=== PATIENT | male | born 1955 | race Caucasian/White ===

== ENCOUNTER 2024-04-19 14:22 | Observation (INO) | payer MEDICARE, SELFPAY ==
--- NOTE | 2024-04-19 14:29 | ERPHSYRPT ---
- History of Present Illness Time Seen by Provider: 04/19/24 14:29 Source: patient, family Exam Limitations: no limitations Physician History: This is a 69-year-old white male patient of primary care physician, Dr. Jax Fischer, and flatwork washer, Dr. Rhoades, and presents with palpitations and left anterior chest discomfort with radiation down his left arm. Patient has a history of COPD, hypertension, hyperlipidemia, anxiety and gastroesophageal reflux disease. Patient has not had a CABG or cardiac stent in place. He does have relatively new diagnosis of atrial fibrillation and is on Xarelto. Patient was visiting and staying at a local [facility], and has been consuming alcoholic beverages, when he noticed left anterior chest discomfort associated palpitations approximately 2 hours prior to arrival. The chest discomfort has resolved but there is still some achiness in his left upper extremity. Patient denies shortness of breath. He does not have a cough. He has no abdominal pain. Timing/Duration: today Quality: other Location: other (Left anterior discomfort left anterior chest) Chest Pain Radiation: arm (Left arm) Severity of Pain-Max: mild Severity of Pain-Current: none Nitro Today/Relief: no nitro taken today Aspirin Treatment Today: 81 mg x 4, provided by ED Associated Symptoms: chest pain, No shortness of breath Prior Chest Pain/Cardiac Workup: cardiac cath, echocardiography Allergies/Adverse Reactions: azithromycin [From Zithromax] Allergy (Verified 04/19/24 14:28) Sulfa (Sulfonamide Antibiotics) Allergy (Verified 04/19/24 14:28) fluticasone furoate [From Breo Ellipta] Adverse Reaction (Verified 04/19/24 14:28) vilanterol [From Breo Ellipta] Adverse Reaction (Verified 04/19/24 14:28) Home Medications: ALPRAZolam [Alprazolam] 0.5 mg PO TID 04/19/24 [History] Albuterol 2.5 mg/3 ml Neb [Proventil 2.5 mg/3 ml Neb] 1 ea Q6HPRN PRN 04/19/24 [History] Albuterol Sulfate [Proair Digihaler] 90 mcg IH Q6H PRN PRN 04/19/24 [History] Budesonide/Glycopyr/Formoterol [Breztri Aerosphere Inhaler] 5.9 gm IH BID [History] Celecoxib 100 mg [celeBREX 100 MG] 100 mg PO DAILY 04/19/24 [History] Cholecalciferol (Vitamin D3) [D3 Dots] 25 mcg PO DAILY 04/19/24 [History] Ezetimibe 10 mg [Zetia 10 MG] 10 mg PO DAILY 04/19/24 [History] Levocetirizine Dihydrochloride 5 mg PO DAILY 04/19/24 [History] Lisinopril 5 mg [Zestril 5 MG] 5 mg PO DAILY 04/19/24 [History] Metoprolol Tartrate 25 mg [Lopressor 25MG Tab] 25 mg PO BID 04/19/24 [History] Omeprazole 20 mg PO DAILY 04/19/24 [History] Rivaroxaban [Xarelto] 20 mg PO DAILY 04/19/24 [History] Simvastatin 10 mg [Zocor 10MG] 10 mg PO DAILY 04/19/24 [History] Tamsulosin HCl 0.4 mg [Flomax 0.4 MG] 1 ea DAILY 04/19/24 [History] cilostazoL [Cilostazol] 50 mg PO BID 04/19/24 [History] Travel Risk - International Travel Have you traveled outside of the country in past 3 weeks: No - Emerging Infectious Disease Are you exhibiting symptoms associated with any current EIDs: No - Review of Systems Constitutional: No Symptoms Eyes: No Symptoms Ears, Nose, & Throat: No Symptoms Respiratory: No Symptoms Cardiac: Chest Pain Abdominal/Gastrointestinal: No Symptoms Genitourinary Symptoms: No Symptoms Musculoskeletal: No Symptoms Skin: No Symptoms Neurological: No Symptoms Psychological: No Symptoms Endocrine: No Symptoms Hematologic/Lymphatic: No Symptoms Immunological/Allergic: No Symptoms All Other Systems: Reviewed and Negative - Past Medical History Pertinent Past Medical History: Yes - Past Surgical History Past Surgical History: Yes - Nursing Vital Signs Nursing Vital Signs: Initial Vital Signs Temperature 97.2 F 04/19/24 14:32 Pulse Rate 66 04/19/24 14:32 Respiratory Rate 18 04/19/24 14:32 Blood Pressure 144/84 04/19/24 14:32 O2 Sat by Pulse Oximetry 99 04/19/24 14:32 Pain Scale Pain Intensity 4 - Physical Exam General Appearance: no apparent distress, alert, anxiety, thin Eye Exam: PERRL/EOMI, eyes nml inspection Ears, Nose, Throat Exam: normal ENT inspection, moist mucous membranes Neck Exam: normal inspection, non-tender, supple, full range of motion Respiratory Exam: normal breath sounds, lungs clear, airway intact, No chest tenderness (No chest tenderness at this time), No respiratory distress Cardiovascular Exam: regular rate/rhythm, normal heart sounds, normal peripheral pulses Gastrointestinal/Abdomen Exam: soft, normal bowel sounds, No tenderness Rectal Exam: not done Back Exam: normal inspection, normal range of motion, No CVA tenderness, No rodrick tebral tenderness Extremity Exam: normal range of motion, pelvis stable, pedal edema (Bilateral feet and ankle swelling) Neurologic Exam: alert, oriented x 3, cooperative, loader unloader II-XII nml as tested, sensation nml Skin Exam: normal color, warm, dry Lymphatic Exam: No adenopathy SpO2 Interpretation: normal O2 Delivery: Room Air - Course EKG Interpreted by Me: RATE (70), Sinus Rhythm, NORMAL AXIS, NORMAL INTERVALS, NORMAL QRS, NORMAL ST-T, Other (No acute ischemic changes on today's twelve-lead EKG. No significant change when compared to EKG dated 06/23/2022. The QTc today is 426) Ordered Tests: Active Orders 24 hr Category Date Time Status EKG-ER Only STAT Care 04/19/24 14:44 Active IV Insertion STAT Care 04/19/24 14:44 Active Pulse Oximetry (ED) STAT Care 04/19/24 14:44 Active CHEST 1 VIEW (PORTABLE) Stat Exams 04/19/24 14:44 Completed CBC W DIFF Stat Lab 04/19/24 14:30 Completed CMP Stat Lab 04/19/24 14:30 Completed ETHYL ALCOHOL Stat Lab 04/19/24 14:30 Completed MAGNESIUM Stat Lab 04/19/24 14:30 Completed NT PRO BNPII Stat Lab 04/19/24 14:30 Completed PROTIME WITH INR Stat Lab 04/19/24 14:30 Completed TROPONIN Q4H Lab 04/19/24 14:30 Completed TROPONIN Q4H Lab 04/19/24 17:25 Completed TROPONIN Q4H Lab 04/19/24 22:45 Ordered Medication Summary Discontinued Medications Generic Name Dose Route Start Last Admin Trade Name Freq PRN Reason Stop Dose Admin Aspirin 324 mg 04/19/24 14:44 04/19/24 14:53 Aspirin 81 Mg Tab.Chew PO 04/19/24 14:45 324 mg STAT ONE Administration Aspirin Confirm 04/19/24 14:52 Aspirin 81 Mg Tab.Chew Administered 04/19/24 14:53 Dose 324 mg .ROUTE .STK-MED ONE Lab/Rad Data: Laboratory Result Diagrams 04/19/24 14:30 04/19/24 14:30 Laboratory Results 04/19/24 04/19/24 04/19/24 Range/Units 17:25 14:30 14:30 WBC (4.23-9.07) x10^3/uL RBC (4.63-6.08) x10^6/uL Hgb (13.7-17.5) g/dL Hct (40.1-51.0) % MCV (79.0-92.2) fL MCH (25.7-32.2) pg MCHC (32.3-36.5) g/dL RDW (11.6-14.4) % Plt Count (163-337) x10^3/uL MPV (9.4-12.4) fL Gran % (34.0-67.9) % Immature Gran % (Auto) (0.001-0.429) % Nucleat RBC Rel Count (0.00-0.2) % Eos # (Auto) (0.04-0.54) x10^3/uL Immature Gran # (Auto) (0.001-0.031) x10^3u/L Absolute Lymphs (auto) (1.32-3.57) x10^3/uL Absolute Monos (auto) (0.30-0.82) x10^3/uL Absolute Nucleated RBC (0.00-0.012) x10^3u/L Lymphocytes % (21.8-53.1) % Monocytes % (5.3-12.2) % Eosinophils % (0.8-7.0) % Basophils % (0.2-1.2) % Absolute Granulocytes (1.78-5.38) x10^3/uL Basophils # (0.01-0.08) x10^3/uL PT 10.9 (9.4-12.5) SECONDS INR 1.00 (0.8-3.0) Sodium (135-145) mmol/L Potassium (3.5-5.1) mmol/L Chloride (98-107) mmol/L Carbon Dioxide (22-30) mmol/L Anion Gap (5-15) MEQ/L BUN (9-20) mg/dL Creatinine (0.66-1.25) mg/dL Estimated GFR ML/MIN Glucose (74-106) mg/dL Calcium (8.4-10.2) mg/dL Magnesium (1.6-2.3) mg/dL Total Bilirubin (0.2-1.3) mg/dL AST (17-59) U/L ALT (0-50) U/L Alkaline Phosphatase (38-126) U/L Troponin I < 0.012 < 0.012 (0.000-0.033) ng/mL NT-Pro-B Natriuret Pep 78.3 (<300) pg/mL Serum Total Protein (6.3-8.2) g/dL Albumin (3.5-5.0) g/dL Ethyl Alcohol (0-10) mg/dL 04/19/24 04/19/24 Range/Units 14:30 14:30 WBC 5.4 (4.23-9.07) x10^3/uL RBC 3.89 L (4.63-6.08) x10^6/uL Hgb 11.4 L (13.7-17.5) g/dL Hct 34.3 L (40.1-51.0) % MCV 88.2 (79.0-92.2) fL MCH 29.3 (25.7-32.2) pg MCHC 33.2 (32.3-36.5) g/dL RDW 13.2 (11.6-14.4) % Plt Count 117 L (163-337) x10^3/uL MPV 11.1 (9.4-12.4) fL Gran % 59.7 (34.0-67.9) % Immature Gran % (Auto) 0.4 (0.001-0.429) % Nucleat RBC Rel Count 0.0 (0.00-0.2) % Eos # (Auto) 0.15 (0.04-0.54) x10^3/uL Immature Gran # (Auto) 0.02 (0.001-0.031) x10^3u/L Absolute Lymphs (auto) 1.23 L (1.32-3.57) x10^3/uL Absolute Monos (auto) 0.73 (0.30-0.82) x10^3/uL Absolute Nucleated RBC 0.00 (0.00-0.012) x10^3u/L Lymphocytes % 22.6 (21.8-53.1) % Monocytes % 13.4 H (5.3-12.2) % Eosinophils % 2.8 (0.8-7.0) % Basophils % 1.1 (0.2-1.2) % Absolute Granulocytes 3.25 (1.78-5.38) x10^3/uL Basophils # 0.06 (0.01-0.08) x10^3/uL PT (9.4-12.5) SECONDS INR (0.8-3.0) Sodium 137 (135-145) mmol/L Potassium 4.4 (3.5-5.1) mmol/L Chloride 103 (98-107) mmol/L Carbon Dioxide 27 (22-30) mmol/L Anion Gap 11.1 (5-15) MEQ/L BUN 18 (9-20) mg/dL Creatinine 1.29 H (0.66-1.25) mg/dL Estimated GFR 60.8 ML/MIN Glucose 104 (74-106) mg/dL Calcium 9.2 (8.4-10.2) mg/dL Magnesium 1.7 (1.6-2.3) mg/dL Total Bilirubin 0.70 (0.2-1.3) mg/dL AST 29 (17-59) U/L ALT 20 (0-50) U/L Alkaline Phosphatase 54 (38-126) U/L Troponin I (0.000-0.033) ng/mL NT-Pro-B Natriuret Pep (<300) pg/mL Serum Total Protein 6.7 (6.3-8.2) g/dL Albumin 3.8 (3.5-5.0) g/dL Ethyl Alcohol < 10 (0-10) mg/dL - Progress Progress: improved, re-examined Air Movement: good Progress Note: 04/19/24 16:02 My medical decision making and the assignment of moderate complexity to this patient's medical issue today is based on review of the patient's past medical history, review of the patient's medication list, review of patient drug allergy list, history present illness and physical exam findings. The workup in this patient includes placement of intravenous line, CBC, CMP, BNP, chest x-ray, twelve-lead EKG, 324 mg of aspirin chewable, magnesium. 04/19/24 16:04 The differential diagnosis in this patient includes but is not limited to myocardial infarction, arrhythmia, electrolyte abnormalities, pneumonia 04/19/24 16:16 I spoke with telemetry flatwork washer Dr. Donnelly. I reviewed the patient history, presenting complaint and workup findings/results. He wanted to make sure that we repeat a 3-hour twelve-lead EKG and troponin level. If the troponin level remains normal, it is appropriate to place him in observation for further evaluation management. We will have telehospitalist consulted and in turn will have the telemetry flatwork washer consulted while this patient is in- house. 04/19/24 16:52 The chest x-ray was interpreted by the radiologist and I reviewed the impression. The impression states COPD changes. No new or acute findings. 04/19/24 18:04 The 3-hour troponin is normal. I interpreted the patient's 3-hour twelve-lead EKG. The heart rate is 63 bpm it is a normal sinus rhythm pattern. There is normal axis deviation and normal QRS as well as normal intervals. There is no evidence of acute ischemia. 04/19/24 18:33 I spoke with our telehospitalist Dr. Davis. I reviewed the patient history, patient presenting complaint, physical findings on examination and the results of the initial workup as well as a 3-hour troponin and twelve-lead EKG. I also spoke reviewed with him my conversation with telemetry flatwork washer Dr. Donnelly. Dr. Davis accepts the patient to be placed in observation on telemetry. Blood Culture(s) Obtained: No Antibiotics given: No Counseled pt/family regarding: lab results, diagnosis Medical Desision Making - Independent Historian Additional History obtained from: Spouse - Diagnostic Testing Diagnostic test were ordered, analyzed, and reviewed by me: Yes Radiological Interpretation: Reviewed by me, Teleradiologist Report - Risk of complications The pt has a high risk of morbidity or mortality based on: Decision regarding hospitilization or escalation of hosp level of care - Departure Departure Disposition: Observation Clinical Impression: Nonspecific chest pain, Left upper extremity numbness Condition: Stable Critical Care Time: No Referrals: JOVITA FISCHER [Primary Care Provider] - Follow up/PCP as directed
[2024-04-19 14:50] LABS: Absolute Neutrophil Ct (ANC) 3.25 x10^3/uL (1.78-5.38); BASOPHIL % 1.1 % (0.2-1.2); Basophil (Absolute #) 0.06 x10^3/uL (0.01-0.08); Eosinophil % 2.8 % (0.8-7.0); Eosinophil (Absolute #) 0.15 x10^3/uL (0.04-0.54); Hematocrit 34.3 % (40.1-51.0); Hemoglobin 11.4 g/dL (13.7-17.5); IMMATURE GRAN # 0.02 x10^3u/L (0.001-0.031); IMMATURE GRAN % 0.4 % (0.001-0.429); Lymphocyte (Absolute #) 1.23 x10^3/uL (1.32-3.57); Lymphocytes % 22.6 % (21.8-53.1); Mean Cell Volume 88.2 fL (79.0-92.2); Mean Corpuscular Hemoglobin 29.3 pg (25.7-32.2); Mean Corpuscular Hgb Concent. 33.2 g/dL (32.3-36.5); Mean Platelet Volume 11.1 fL (9.4-12.4); Monocyte (Absolute #) 0.73 x10^3/uL (0.30-0.82); Monocytes % 13.4 % (5.3-12.2); Neutrophil % 59.7 % (34.0-67.9); Platelet Count 117 x10^3/uL (163-337); Red Blood Count 3.89 x10^6/uL (4.63-6.08); Red Cell Distribution Width 13.2 % (11.6-14.4); White Blood Count 5.4 x10^3/uL (4.23-9.07)
[2024-04-19] MEDS ORDERED: BABY ASPIRIN 81 MG CHEW ONE (14:52)
[2024-04-19] MEDS: BABY ASPIRIN 81 MG CHEW PO ONE (14:53)
[2024-04-19 14:58] LABS: ALBUMIN 3.8 g/dL (3.5-5.0); ALKALINE PHOSPHATASE 54 U/L (38-126); ANION GAP 11.1 MEQ/L (5-15); BLOOD UREA NITROGEN 18 mg/dL (9-20); CHLORIDE 103 mmol/L (98-107); Calcium 9.2 mg/dL (8.4-10.2); Carbon Dioxide 27 mmol/L (22-30); Creatinine 1 1.29 mg/dL (0.66-1.25); EST GLOMERULAR FILTRATION RATE 60.8 ML/MIN; ETHYL ALCOHOL < 10 mg/dL (0-10); Glucose 104 mg/dL (74-106); MAGNESIUM 1.7 mg/dL (1.6-2.3); PROTIME 10.9 SECONDS (9.4-12.5); Potassium 4.4 mmol/L (3.5-5.1); SGOT/AST 29 U/L (17-59); SGPT/ALT 20 U/L (0-50); SODIUM 137 mmol/L (135-145); Total Protein 6.7 g/dL (6.3-8.2)
--- NOTE | 2024-04-19 15:05 | XRAY ---
Indication: Chest pain. Comparison: August 25, 2023 Portable chest unchanged again demonstrate COPD and left lung suture material. Remaining heart and lungs unremarkable. Bony thorax intact again with osteopenia, mild degenerative changes, and old right 7 rib fracture. No new/acute findings.
[2024-04-19 15:10] LABS: NT PRO BNPII 78.3 pg/mL (<300); TROPONIN < 0.012 ng/mL (0.000-0.033)
[2024-04-19] MEDS ORDERED: Zofran 4 MG/2 ML VIAL IV PRN (19:41)
[2024-04-19] MEDS ORDERED: TYLENOL 325 MG PO PRN (19:41)
[2024-04-19] MEDS ORDERED: PROVENTIL 2.5 MG/3 ML NEB IH PRN (21:19)
--- NOTE | 2024-04-19 21:27 | PCM.HP ---
History of Present Illness - Chief Complaint Chief Complaint: Chest pressure and "fluttering" Date: 04/19/24 History of Present Illness: 69-year-old man with history of COPD, paroxysmal A-fib, mild CKD stage III, and hypertension, who presents with chest pressure. Patient has paroxysmal atrial fibrillation, usually asymptomatic, but has had a few episodes of feeling fluttering in his chest in the past. Today, at rest, he had the onset around 2 PM of falling again, this time associated with chest pressure over his mid sternum to left side, radiating to his left arm, lasting around 2 hours. Denies associated dyspnea, nausea, or diaphoresis. Pain occurred at rest, not relieved by rest, only after getting aspirin in the ED. No similar chest pressure in the past. No recent sick contacts or other illnesses, no recent change in medications or diet. He was camping recently with a campfire, and thinks he might have a little bit of wheezing, but none currently. Currently he is chest pain-free. Of note, he is to see his mail examiner Dr. Rhoades at the end of this month for follow-up with A-fib. PCP is Dr. Fischer. - Review of Systems Constitutional: No Fever, No Lethargy, No Malaise, No Night Sweats Eyes: No Vision Changes, No Double Vision Ears, Nose, & Throat: No Sinus Drainage, No Mouth Swelling, No Throat Pain Respiratory: Wheezing, No Cough, No Short Of Breath Cardiac: Chest Pain, Palpitations, No Edema, No Syncope, No PND Abdominal/Gastrointestinal: No Abdominal Pain, No Nausea, No Diarrhea, No Constipation Genitourinary Symptoms: No Dysuria, No Frequency All Other Systems: Reviewed and Negative Medications & Allergies Home Medications: Home Medication List ALPRAZolam [Alprazolam] 0.5 mg PO TID 04/19/24 [History Confirmed 04/19/24] Albuterol 2.5 mg/3 ml Neb [Proventil 2.5 mg/3 ml Neb] 1 ea Q6HPRN PRN 04/19/24 [History Confirmed 04/19/24] Albuterol Sulfate [Proair Digihaler] 90 mcg IH Q6H PRN PRN 04/19/24 [History Confirmed 04/19/24] Budesonide/Glycopyr/Formoterol [Breztri Aerosphere Inhaler] 5.9 gm IH BID 04/19/24 [History Confirmed 04/19/24] Celecoxib 100 mg [celeBREX 100 MG] 100 mg PO DAILY 04/19/24 [History Confirmed 04/19/24] Cholecalciferol (Vitamin D3) [D3 Dots] 25 mcg PO HS 04/19/24 [History Confirmed 04/19/24] Ezetimibe 10 mg [Zetia 10 MG] 10 mg PO DAILY 04/19/24 [History Confirmed 04/19/24] Levocetirizine Dihydrochloride 5 mg PO HS 04/19/24 [History Confirmed 04/19/24] Lisinopril 5 mg [Zestril 5 MG] 5 mg PO HS 04/19/24 [History Confirmed 04/19/24] Metoprolol Tartrate 25 mg [Lopressor 25MG Tab] 25 mg PO BID 04/19/24 [History Confirmed 04/19/24] Omeprazole 20 mg PO HS 04/19/24 [History Confirmed 04/19/24] Rivaroxaban [Xarelto] 20 mg PO HS 04/19/24 [History Confirmed 04/19/24] Simvastatin 10 mg [Zocor 10MG] 10 mg PO DAILY 04/19/24 [History Confirmed 04/19/24] Tamsulosin HCl 0.4 mg [Flomax 0.4 MG] 1 mg PO HS 04/19/24 [History Confirmed 04/19/24] cilostazoL [Cilostazol] 50 mg PO BID 04/19/24 [History Confirmed 04/19/24] Allergies/Adverse Reactions: Allergies Allergy/AdvReac Type Severity Reaction Status Date / Time azithromycin [From Zithromax] Allergy Verified 04/19/24 14:28 Sulfa (Sulfonamide Allergy Verified 04/19/24 14:28 Antibiotics) fluticasone furoate AdvReac Verified 04/19/24 14:28 [From Breo Ellipta] vilanterol AdvReac Verified 04/19/24 14:28 [From Breo Ellipta] - Past Medical History Past Medical History: Yes Neurological History: No Pertinent History ENT History: No Pertinent History Cardiac History: Arrhythmia (Paroxysmal atrial fibrillation), High Cholesterol, Hypertension, Other (Mitral valve prolapse without stenosis) Respiratory History: COPD (Not requiring oxygen) Endocrine Medical History: No Pertinent History Musculoskelatal History: No Pertinent History GI Medical History: GERD History: Renal Disease (CKD stage III, baseline creatinine 1.3) Pyscho-Social History: No Pertinent History Male Reproductive Disorders: No Pertinent History - Past Surgical History Past Surgical History: Yes Neuro Surgical History: No Pertinent History Respiratory Surgery: Lobectomy, Other GI Surgical History: No Pertinent History Genitourinary Surgical Hx: No Pertinent History Musculskeletal Surgical Hx: No Pertinent History Male Surgical History: No Pertinent History Other Surgical History: removed nodle in lung, left lobectomy Significant Family History: heart disease (Mother with heart disease in her 50s) - Social History Smoking Status: Former smoker (Quit 15 years ago) Exposure to second hand smoke: No Alcohol: Daily Drug Use: none - Social Determinants of Health Will the patient participate in the screening: Yes Do you worry about a steady place to live?: No Do you have any problems with any of the following?: No known problems In the past 12 months,have you had to go without utilities?: No Have you or anyone in your house had to go without enough: No Transportation Issues: No Has anyone in your support network made you feel unsafe?: No Does the patient want assistance with any of the above?: No - Physical Exam Vital Signs: Vital Signs - 24 hr Temp Pulse Pulse Resp BP BP Pulse Ox 04/19/24 19:55 97.4 F 67 16 165/77 97 04/19/24 19:00 70 13 150/73 97 04/19/24 18:30 68 16 142/83 97 04/19/24 18:00 63 16 150/84 97 04/19/24 17:30 64 15 153/71 04/19/24 17:01 66 17 138/74 99 04/19/24 16:30 65 16 118/68 95 04/19/24 16:00 65 16 125/66 99 04/19/24 15:41 64 16 137/99 04/19/24 15:39 98 04/19/24 15:30 65 19 130/68 99 04/19/24 14:49 70 04/19/24 14:32 97.2 F 66 18 144/84 99 GEN: Lying in bed in no acute distress NEURO: No focal deficits CV: Regular rate and rhythm currently. Slight mitral click. No murmurs. No edema. PULM: Minimal wheezing at bilateral bases. No work of breathing, no accessory muscle movement. On room air. ABD: Soft, non-distended, normoactive bowel sounds PSYCH: Alert, oriented x3 Results - Labs Lab/Micro Results: Lab Results-Last 24 Hours 04/19/24 04/19/24 04/19/24 Range/Units 14:30 14:30 14:30 WBC 5.4 (4.23-9.07) x10^3/uL RBC 3.89 L (4.63-6.08) x10^6/uL Hgb 11.4 L (13.7-17.5) g/dL Hct 34.3 L (40.1-51.0) % MCV 88.2 (79.0-92.2) fL MCH 29.3 (25.7-32.2) pg MCHC 33.2 (32.3-36.5) g/dL RDW 13.2 (11.6-14.4) % Plt Count 117 L (163-337) x10^3/uL MPV 11.1 (9.4-12.4) fL Gran % 59.7 (34.0-67.9) % Immature Gran % (Auto) 0.4 (0.001-0.429) % Nucleat RBC Rel Count 0.0 (0.00-0.2) % Eos # (Auto) 0.15 (0.04-0.54) x10^3/uL Immature Gran # (Auto) 0.02 (0.001-0.031) x10^3u/L Absolute Lymphs (auto) 1.23 L (1.32-3.57) x10^3/uL Absolute Monos (auto) 0.73 (0.30-0.82) x10^3/uL Absolute Nucleated RBC 0.00 (0.00-0.012) x10^3u/L Lymphocytes % 22.6 (21.8-53.1) % Monocytes % 13.4 H (5.3-12.2) % Eosinophils % 2.8 (0.8-7.0) % Basophils % 1.1 (0.2-1.2) % Absolute Granulocytes 3.25 (1.78-5.38) x10^3/uL Basophils # 0.06 (0.01-0.08) x10^3/uL PT 10.9 (9.4-12.5) SECONDS INR 1.00 (0.8-3.0) Sodium 137 (135-145) mmol/L Potassium 4.4 (3.5-5.1) mmol/L Chloride 103 (98-107) mmol/L Carbon Dioxide 27 (22-30) mmol/L Anion Gap 11.1 (5-15) MEQ/L BUN 18 (9-20) mg/dL Creatinine 1.29 H (0.66-1.25) mg/dL Estimated GFR 60.8 ML/MIN Glucose 104 (74-106) mg/dL Calcium 9.2 (8.4-10.2) mg/dL Magnesium 1.7 (1.6-2.3) mg/dL Total Bilirubin 0.70 (0.2-1.3) mg/dL AST 29 (17-59) U/L ALT 20 (0-50) U/L Alkaline Phosphatase 54 (38-126) U/L Troponin I (0.000-0.033) ng/mL NT-Pro-B Natriuret Pep (<300) pg/mL Serum Total Protein 6.7 (6.3-8.2) g/dL Albumin 3.8 (3.5-5.0) g/dL Ethyl Alcohol < 10 (0-10) mg/dL 04/19/24 04/19/24 Range/Units 14:30 17:25 WBC (4.23-9.07) x10^3/uL RBC (4.63-6.08) x10^6/uL Hgb (13.7-17.5) g/dL Hct (40.1-51.0) % MCV (79.0-92.2) fL MCH (25.7-32.2) pg MCHC (32.3-36.5) g/dL RDW (11.6-14.4) % Plt Count (163-337) x10^3/uL MPV (9.4-12.4) fL Gran % (34.0-67.9) % Immature Gran % (Auto) (0.001-0.429) % Nucleat RBC Rel Count (0.00-0.2) % Eos # (Auto) (0.04-0.54) x10^3/uL Immature Gran # (Auto) (0.001-0.031) x10^3u/L Absolute Lymphs (auto) (1.32-3.57) x10^3/uL Absolute Monos (auto) (0.30-0.82) x10^3/uL Absolute Nucleated RBC (0.00-0.012) x10^3u/L Lymphocytes % (21.8-53.1) % Monocytes % (5.3-12.2) % Eosinophils % (0.8-7.0) % Basophils % (0.2-1.2) % Absolute Granulocytes (1.78-5.38) x10^3/uL Basophils # (0.01-0.08) x10^3/uL PT (9.4-12.5) SECONDS INR (0.8-3.0) Sodium (135-145) mmol/L Potassium (3.5-5.1) mmol/L Chloride (98-107) mmol/L Carbon Dioxide (22-30) mmol/L Anion Gap (5-15) MEQ/L BUN (9-20) mg/dL Creatinine (0.66-1.25) mg/dL Estimated GFR ML/MIN Glucose (74-106) mg/dL Calcium (8.4-10.2) mg/dL Magnesium (1.6-2.3) mg/dL Total Bilirubin (0.2-1.3) mg/dL AST (17-59) U/L ALT (0-50) U/L Alkaline Phosphatase (38-126) U/L Troponin I < 0.012 < 0.012 (0.000-0.033) ng/mL NT-Pro-B Natriuret Pep 78.3 (<300) pg/mL Serum Total Protein (6.3-8.2) g/dL Albumin (3.5-5.0) g/dL Ethyl Alcohol (0-10) mg/dL - Radiology Impressions Radiology Exams & Impressions: Radiology Procedures Category Date Time Status CHEST 1 VIEW (PORTABLE) Stat Exams 04/19/24 14:44 Completed Chest x-ray slightly deep right costophrenic angle, consistent with COPD. No infiltrate, effusion, or edema. (Images personally reviewed.) - Other Procedures and Tests Respiratory Therapy 04/19/24 19:41 EKG REPEAT IN AM Assessment/Plan (1) Nonspecific chest pain Current Visit: Yes Status: Acute Assessment & Plan: 69-year-old man with history of paroxysmal atrial fibrillation, COPD, CKD stage III, mitral valve prolapse, hypertension, dyslipidemia, who presents with chest pressure, now resolved, with no elevation in troponin. ## Chest pain no evidence of PR at this point. Troponins negative, EKG unchanged, and chest x-ray negative. Patient is moderate risk for future events with a heart score of 4. However, I suspect this event was caused more from demand from a paroxysmal atrial fibrillation event. However, it is possible that he has some moderate ischemia that is revealed when the heart is under more stress. Cardiology consulted by the ED and will follow-up in the hospital Monitor overnight on telemetry Serial troponins Continue home metoprolol and aspirin Will need follow-up with his mail examiner and arrange for outpatient stress test if troponins remain negative and no further rectal telemetry Dr. Rhoades ## Paroxysmal atrial fibrillation currently in sinus rhythm Continue Lopressor 20 mg BID, Xarelto 20 QHS ## Hypertension blood pressure currently well-controlled. Continue home lisinopril 5 QHS, Lopressor 25 BID ## COPD not requiring home oxygen. Some mild wheezing currently, but not acting his breathing currently. PRN albuterol Continue home controller inhaler ## Dyslipidemia Continue simvastatin 10 mg QHS, but if we confirm CAD, he will need a more high potency statin ## GERD currently controlled. Continue home omeprazole 20 mg QHS ## BPH Continue home Flomax 0.4 CODE STATUS: Full code Prophylaxis: Rivaroxaban Diet: Regular Code(s): R07.9 - CHEST PAIN, UNSPECIFIED Telemedicine Encounter - Telemedicine Encounter Telemedicine Encounter: "The entirety of this encounter was performed via Telemedicine" This visit was performed using real-time audio and video connection between my location and thepatients locationwith the assistance of a surrogateat the patients location. Written or verbal consent was obtained from the patient/guardian to perform this visit [facility]. Any patient questions regarding the telemedicine interaction were answered.
[2024-04-19] MEDS ORDERED: Flomax 0.4 MG PO SCH (22:00)
[2024-04-19] MEDS ORDERED: NON-FORMULARY ITEM (Rivaroxaban [Xarelto] 20 MG Tablet) PO SCH (22:00)
[2024-04-19] MEDS ORDERED: NON-FORMULARY ITEM (Cilostazol [Cilostazol] 50 MG Tablet) PO SCH (22:00)
[2024-04-19] MEDS ORDERED: VENTOLIN COMMON CANISTER IH PRN (22:11)
[2024-04-19] MEDS: NON-FORMULARY ITEM (Budesonide/Glycopyr/Formoterol [Breztri Aerosphere Inhaler] 10.7 GM Hf IH SCH (22:13)
[2024-04-19] MEDS: Lopressor 25MG Tab PO SCH (22:14)
[2024-04-19] MEDS: Zestril 5 MG PO SCH (22:14)
[2024-04-19] MEDS: XARELTO 10 MG TABLET PO SCH (22:14)
[2024-04-19] MEDS: Flomax 0.4 MG PO SCH (22:14)
[2024-04-19] MEDS: Pletal 100 MG PO SCH (22:14)
[2024-04-19] MEDS: xanAX 0.5 MG PO SCH (22:15)
[2024-04-19] MEDS: CHOLECALCIFEROL 50 MCG PO SCH (22:33)
[2024-04-19] MEDS: NON-FORMULARY ITEM (Omeprazole [Omeprazole] 20 MG Capsule.Dr) PO SCH (22:35)
[2024-04-19] MEDS: NON-FORMULARY ITEM (Levocetirizine Dihydrochloride [Levocetirizine Dihydrochloride] 5 MG T PO SCH (22:36)
[2024-04-20 06:14] LABS: Hematocrit 32.7 % (40.1-51.0); Hemoglobin 10.7 g/dL (13.7-17.5); Mean Cell Volume 89.3 fL (79.0-92.2); Mean Corpuscular Hemoglobin 29.2 pg (25.7-32.2); Mean Corpuscular Hgb Concent. 32.7 g/dL (32.3-36.5); Mean Platelet Volume 10.8 fL (9.4-12.4); Platelet Count 121 x10^3/uL (163-337); Red Blood Count 3.66 x10^6/uL (4.63-6.08); Red Cell Distribution Width 13.3 % (11.6-14.4); White Blood Count 5.5 x10^3/uL (4.23-9.07)
[2024-04-20 06:37] LABS: ANION GAP 8.7 MEQ/L (5-15); Calcium 9.2 mg/dL (8.4-10.2); Creatinine 1 1.28 mg/dL (0.66-1.25); EST GLOMERULAR FILTRATION RATE 61.3 ML/MIN; Potassium 4.5 mmol/L (3.5-5.1)
[2024-04-20 07:31] VITALS: BP 119/62; TEMP 97.3; O2SAT 97
[2024-04-20] MEDS: PROVENTIL 2.5 MG/3 ML NEB IH SCH (07:31)
[2024-04-20 07:35] VITALS: PULSE 76; RESP 18
[2024-04-20] MEDS: PATIENT OWN MEDICATION IH SCH (07:45)
[2024-04-20] MEDS ORDERED: MEDICATION INTERVENTION MC SCH (08:45)
--- NOTE | 2024-04-20 09:20 | PCM.DS ---
Discharge Summary Date of Admission: 04/19/24 19:34 Date of Discharge: 04/20/24 Admitting Physician: WU HARDEN MD Primary Care Provider: JOVITA SERRANO Allergies Allergies azithromycin [From Zithromax] Allergy (Verified 04/19/24 14:28) Sulfa (Sulfonamide Antibiotics) Allergy (Verified 04/19/24 14:28) fluticasone furoate [From Breo Ellipta] Adverse Reaction (Verified 04/19/24 14:28) vilanterol [From Breo Ellipta] Adverse Reaction (Verified 04/19/24 14:28) Hospital Summary - Hospital Course Hospital Course: 04/20/24 69-year-old man with history of COPD, paroxysmal A-fib, mild CKD stage III, and hypertension. He presented with chest pressure on 04/19/24. Patient has paroxysmal atrial fibrillation, usually asymptomatic, but has had a few episodes of feeling fluttering in his chest in the past. At rest, he had the onset around 2 PM of falling again, this time associated with chest pressure over his mid sternum to left side, radiating to his left arm, lasting around 2 hours. Denies associated dyspnea, nausea, or diaphoresis. Pain occurred at rest, not relieved by rest, only after getting aspirin in the ED. No similar chest pressure in the past. No recent sick contacts or other illnesses, no recent change in medications or diet. He was camping recently with a campfire, and thinks he might have a little bit of wheezing, but none currently. Of note, he is to see his nuclear physicist Dr. Rhoades at the end of this month for follow-up with A-fib. PCP is Dr. Jax Serrano. He has not had any CP since admission and numbness is gone. Trop x3 negative. It is recommended he call Dr. Rhoades and discuss OP stress testing for further evaluation of sxs. Kidney function is at baseline. He does not have nitro at home and will d/c with this. He denies, CP, SOB, abd. pain, N/V/D. - Vitals & Intake/Output Vital Signs: Vital Signs Temperature 97.3 F 04/20/24 07:28 Pulse Rate 76 04/20/24 07:31 Respiratory Rate 18 04/20/24 07:31 Blood Pressure 119/62 04/20/24 07:28 O2 Sat by Pulse Oximetry 97 04/20/24 07:31 Intake & Output: Intake & Output 04/17/24 04/18/24 04/19/24 04/20/24 11:59 11:59 11:59 11:59 Intake Total 540 Balance 540 Weight 69.2 kg - Lab Result Diagrams: 04/20/24 05:30 04/20/24 05:30 Lab Results-Last 24 Hrs: Lab Results-Last 24 Hours 04/19/24 04/19/24 04/19/24 Range/Units 14:30 14:30 14:30 WBC 5.4 (4.23-9.07) x10^3/uL RBC 3.89 L (4.63-6.08) x10^6/uL Hgb 11.4 L (13.7-17.5) g/dL Hct 34.3 L (40.1-51.0) % MCV 88.2 (79.0-92.2) fL MCH 29.3 (25.7-32.2) pg MCHC 33.2 (32.3-36.5) g/dL RDW 13.2 (11.6-14.4) % Plt Count 117 L (163-337) x10^3/uL MPV 11.1 (9.4-12.4) fL Gran % 59.7 (34.0-67.9) % Immature Gran % (Auto) 0.4 (0.001-0.429) % Nucleat RBC Rel Count 0.0 (0.00-0.2) % Eos # (Auto) 0.15 (0.04-0.54) x10^3/uL Immature Gran # (Auto) 0.02 (0.001-0.031) x10^3u/L Absolute Lymphs (auto) 1.23 L (1.32-3.57) x10^3/uL Absolute Monos (auto) 0.73 (0.30-0.82) x10^3/uL Absolute Nucleated RBC 0.00 (0.00-0.012) x10^3u/L Lymphocytes % 22.6 (21.8-53.1) % Monocytes % 13.4 H (5.3-12.2) % Eosinophils % 2.8 (0.8-7.0) % Basophils % 1.1 (0.2-1.2) % Absolute Granulocytes 3.25 (1.78-5.38) x10^3/uL Basophils # 0.06 (0.01-0.08) x10^3/uL PT 10.9 (9.4-12.5) SECONDS INR 1.00 (0.8-3.0) Sodium 137 (135-145) mmol/L Potassium 4.4 (3.5-5.1) mmol/L Chloride 103 (98-107) mmol/L Carbon Dioxide 27 (22-30) mmol/L Anion Gap 11.1 (5-15) MEQ/L BUN 18 (9-20) mg/dL Creatinine 1.29 H (0.66-1.25) mg/dL Estimated GFR 60.8 ML/MIN Glucose 104 (74-106) mg/dL Calcium 9.2 (8.4-10.2) mg/dL Magnesium 1.7 (1.6-2.3) mg/dL Total Bilirubin 0.70 (0.2-1.3) mg/dL AST 29 (17-59) U/L ALT 20 (0-50) U/L Alkaline Phosphatase 54 (38-126) U/L Troponin I (0.000-0.033) ng/mL NT-Pro-B Natriuret Pep (<300) pg/mL Serum Total Protein 6.7 (6.3-8.2) g/dL Albumin 3.8 (3.5-5.0) g/dL Triglycerides (30-150) mg/dL Cholesterol (50-200) mg/dL LDL Cholesterol (30-100) mg/dL HDL Cholesterol (40-60) mg/dL Heart Disease Risk Ratio Ethyl Alcohol < 10 (0-10) mg/dL 04/19/24 04/19/24 04/19/24 Range/Units 14:30 17:25 22:00 WBC (4.23-9.07) x10^3/uL RBC (4.63-6.08) x10^6/uL Hgb (13.7-17.5) g/dL Hct (40.1-51.0) % MCV (79.0-92.2) fL MCH (25.7-32.2) pg MCHC (32.3-36.5) g/dL RDW (11.6-14.4) % Plt Count (163-337) x10^3/uL MPV (9.4-12.4) fL Gran % (34.0-67.9) % Immature Gran % (Auto) (0.001-0.429) % Nucleat RBC Rel Count (0.00-0.2) % Eos # (Auto) (0.04-0.54) x10^3/uL Immature Gran # (Auto) (0.001-0.031) x10^3u/L Absolute Lymphs (auto) (1.32-3.57) x10^3/uL Absolute Monos (auto) (0.30-0.82) x10^3/uL Absolute Nucleated RBC (0.00-0.012) x10^3u/L Lymphocytes % (21.8-53.1) % Monocytes % (5.3-12.2) % Eosinophils % (0.8-7.0) % Basophils % (0.2-1.2) % Absolute Granulocytes (1.78-5.38) x10^3/uL Basophils # (0.01-0.08) x10^3/uL PT (9.4-12.5) SECONDS INR (0.8-3.0) Sodium (135-145) mmol/L Potassium (3.5-5.1) mmol/L Chloride (98-107) mmol/L Carbon Dioxide (22-30) mmol/L Anion Gap (5-15) MEQ/L BUN (9-20) mg/dL Creatinine (0.66-1.25) mg/dL Estimated GFR ML/MIN Glucose (74-106) mg/dL Calcium (8.4-10.2) mg/dL Magnesium (1.6-2.3) mg/dL Total Bilirubin (0.2-1.3) mg/dL AST (17-59) U/L ALT (0-50) U/L Alkaline Phosphatase (38-126) U/L Troponin I < 0.012 < 0.012 < 0.012 (0.000-0.033) ng/mL NT-Pro-B Natriuret Pep 78.3 (<300) pg/mL Serum Total Protein (6.3-8.2) g/dL Albumin (3.5-5.0) g/dL Triglycerides (30-150) mg/dL Cholesterol (50-200) mg/dL LDL Cholesterol (30-100) mg/dL HDL Cholesterol (40-60) mg/dL Heart Disease Risk Ratio Ethyl Alcohol (0-10) mg/dL 04/20/24 04/20/24 Range/Units 05:30 05:30 WBC 5.5 (4.23-9.07) x10^3/uL RBC 3.66 L (4.63-6.08) x10^6/uL Hgb 10.7 L (13.7-17.5) g/dL Hct 32.7 L (40.1-51.0) % MCV 89.3 (79.0-92.2) fL MCH 29.2 (25.7-32.2) pg MCHC 32.7 (32.3-36.5) g/dL RDW 13.3 (11.6-14.4) % Plt Count 121 L (163-337) x10^3/uL MPV 10.8 (9.4-12.4) fL Gran % (34.0-67.9) % Immature Gran % (Auto) (0.001-0.429) % Nucleat RBC Rel Count (0.00-0.2) % Eos # (Auto) (0.04-0.54) x10^3/uL Immature Gran # (Auto) (0.001-0.031) x10^3u/L Absolute Lymphs (auto) (1.32-3.57) x10^3/uL Absolute Monos (auto) (0.30-0.82) x10^3/uL Absolute Nucleated RBC (0.00-0.012) x10^3u/L Lymphocytes % (21.8-53.1) % Monocytes % (5.3-12.2) % Eosinophils % (0.8-7.0) % Basophils % (0.2-1.2) % Absolute Granulocytes (1.78-5.38) x10^3/uL Basophils # (0.01-0.08) x10^3/uL PT (9.4-12.5) SECONDS INR (0.8-3.0) Sodium 137 (135-145) mmol/L Potassium 4.5 (3.5-5.1) mmol/L Chloride 104 (98-107) mmol/L Carbon Dioxide 28 (22-30) mmol/L Anion Gap 8.7 (5-15) MEQ/L BUN 16 (9-20) mg/dL Creatinine 1.28 H (0.66-1.25) mg/dL Estimated GFR 61.3 ML/MIN Glucose 101 (74-106) mg/dL Calcium 9.2 (8.4-10.2) mg/dL Magnesium (1.6-2.3) mg/dL Total Bilirubin (0.2-1.3) mg/dL AST (17-59) U/L ALT (0-50) U/L Alkaline Phosphatase (38-126) U/L Troponin I (0.000-0.033) ng/mL NT-Pro-B Natriuret Pep (<300) pg/mL Serum Total Protein (6.3-8.2) g/dL Albumin (3.5-5.0) g/dL Triglycerides 121 (30-150) mg/dL Cholesterol 149 (50-200) mg/dL LDL Cholesterol 69 (30-100) mg/dL HDL Cholesterol 68 H (40-60) mg/dL Heart Disease Risk Ratio 2.0 Ethyl Alcohol (0-10) mg/dL - Radiology Exams Ordered Rad Exams-Entire Visit: Radiology Procedures Category Date Time Status CHEST 1 VIEW (PORTABLE) Stat Exams 04/19/24 14:44 Completed - Procedures and Test Procedures and Tests throughout Hospitalization: Therapy Orders & Screens 04/19/24 19:41 EKG REPEAT IN AM Comment: 04/19/24 22:07 Respiratory Therapy Assessment DAILY Comment: Diagnosis: Chest pressure and "fluttering" 04/19/24 22:09 Respiratory MDI BID Comment: Diagnosis: Chest pressure and "fluttering" Discharge Exam General Appearance: no apparent distress, alert Neurologic Exam: alert, oriented x 3, cooperative, normal mood/affect, nml cerebellar function, sensation nml, No motor deficits Eye Exam: PERRL, EOMI, eyes nml inspection Ears, Nose, Throat Exam: normal ENT inspection, pharynx normal, moist mucous membranes Neck Exam: normal inspection, non-tender, supple, full range of motion Respiratory Exam: normal breath sounds, lungs clear, No respiratory distress Cardiovascular Exam: regular rate/rhythm, normal heart sounds, edema (BLLE- chronic per pt d/t PVD) Gastrointestinal/Abdomen Exam: soft, No tenderness, No mass Male Genitalia Exam: deferred Rectal Exam: deferred Back Exam: normal inspection, normal range of motion, No CVA tenderness, No vertebral tenderness Extremity Exam: normal inspection, normal range of motion Skin Exam: normal color, warm, dry Final Diagnosis/Problem List - Final Discharge Diagnosis/Problem (1) Nonspecific chest pain Current Visit: Yes Status: Resolved Assessment & Plan: no evidence of [place] at this point. Troponins negative, EKG unchanged, and chest x-ray negative. Patient is moderate risk for future events with a heart score of 4. - Likely caused more from demand from a paroxysmal atrial fibrillation event. However, it is possible that he has some moderate ischemia that is revealed when the heart is under more stress. telemetry Serial troponins negative Continue home metoprolol Will need follow-up with his nuclear physicist and arrange for outpatient stress test - F/u OP with Dr. Rhoades - ASA gave in ER Code(s): R07.9 - CHEST PAIN, UNSPECIFIED (2) Left upper extremity numbness Current Visit: Yes Status: Resolved Assessment & Plan: - with CP yesterday- since resolved, none since admission - Will need OP stress test for f/u. Code(s): R20.0 - ANESTHESIA OF SKIN (3) Paroxysmal atrial fibrillation Current Visit: Yes Status: Chronic Assessment & Plan: -Continue Lopressor 20 mg BID, Xarelto 20 QHS Code(s): I48.0 - PAROXYSMAL ATRIAL FIBRILLATION (4) COPD (chronic obstructive pulmonary disease) Current Visit: Yes Status: Chronic Assessment & Plan: PRN albuterol Continue home controller inhaler - not in acute exacerbation (5) Dyslipidemia Current Visit: Yes Status: Chronic Assessment & Plan: Continue simvastatin 10 mg QHS - lipid panel reviewed Code(s): E78.5 - HYPERLIPIDEMIA, UNSPECIFIED (6) GERD (gastroesophageal reflux disease) Current Visit: Yes Status: Chronic Assessment & Plan: Continue home omeprazole 20 mg QHS Code(s): K21.9 - GASTRO-ESOPHAGEAL REFLUX DISEASE WITHOUT ESOPHAGITIS (7) BPH (benign prostatic hyperplasia) Current Visit: Yes Status: Chronic Assessment & Plan: Continue home Flomax 0.4 Code(s): N40.0 - BENIGN PROSTATIC HYPERPLASIA WITHOUT LOWER URINRY TRACT SYMP - Discharge Discharge Date: 04/20/24 Disposition: Home, Self-Care Condition: Stable Prescriptions: Continue Ezetimibe 10 mg [Zetia 10 MG] 10 mg PO DAILY cilostazoL [Cilostazol] 50 mg PO BID Rivaroxaban [Xarelto] 20 mg PO HS Omeprazole 20 mg PO HS Lisinopril 5 mg [Zestril 5 MG] 5 mg PO HS Metoprolol Tartrate 25 mg [Lopressor 25MG Tab] 25 mg PO BID Albuterol 2.5 mg/3 ml Neb [Proventil 2.5 mg/3 ml Neb] 1 ea Q6HPRN PRN PRN Reason: Shortness Of Breath Tamsulosin HCl 0.4 mg [Flomax 0.4 MG] 1 mg PO HS Cholecalciferol (Vitamin D3) [D3 Dots] 25 mcg PO HS Simvastatin 10 mg [Zocor 10MG] 10 mg PO DAILY Albuterol Sulfate [Proair Digihaler] 90 mcg IH Q6H PRN PRN PRN Reason: Shortness Of Breath Budesonide/Glycopyr/Formoterol [Breztri Aerosphere Inhaler] 5.9 gm IH BID Levocetirizine Dihydrochloride 5 mg PO HS ALPRAZolam [Alprazolam] 0.5 mg PO TID Celecoxib 100 mg [celeBREX 100 MG] 100 mg PO DAILY Additional Instructions: Please call Dr. Rhoades for earlier appointment. Will likely need OP stress test. Follow up with: JOVITA SERRANO [Primary Care Provider] -
[2024-04-20] MEDS ORDERED: Zocor 10MG PO SCH (10:00)
[2024-04-20] MEDS ORDERED: CLARITIN 10 MG PO SCH (10:00)
[2024-04-20] MEDS ORDERED: Protonix 40MG Tablet PO SCH (10:00)
[2024-04-20] MEDS ORDERED: VITAMIN D PO SCH (10:00)
[2024-04-20] MEDS ORDERED: Zetia 10 MG PO SCH (10:00)
[2024-04-20] MEDS ORDERED: celeBREX 100 MG PO SCH (10:00)
[2024-04-20] MEDS ORDERED: NON-FORMULARY ITEM PO SCH ×3 (22:00)
== END 2024-04-20 10:42 | disposition home or self-care (01) ==
LOC: ED 14:22 → MED SURG 19:34
PROVIDERS: ADMIT Internal Medicine; ATTEND Internal Medicine
DX: R07.9 Chest pain, unspecified (principal); R20.0 Anesthesia of skin; I48.0 Paroxysmal atrial fibrillation; J44.9 Chronic obstructive pulmonary disease, unspecified; I12.9 Hypertensive chronic kidney disease with stage 1 through stage 4 chronic kidney disease, or unspecified chronic kidney disease; N18.30 Chronic kidney disease, stage 3 unspecified; E78.5 Hyperlipidemia, unspecified; K21.9 Gastro-esophageal reflux disease without esophagitis; N40.0 Benign prostatic hyperplasia without lower urinary tract symptoms; Z79.01 Long term (current) use of anticoagulants; Z79.899 Other long term (current) drug therapy
CPT/HCPCS: 36000; 36415; 71045; 80048; 80053; 80061; 82077; 83721; 83735; 83880; 84484; 85025; 85027; 85610; 93005; 93268; 94640; 94760; 94762; 99285; G0378; Q3014; J7609; A9270-GY